=== PATIENT | female | born 1980 | race Caucasian/White ===

== ENCOUNTER 2023-12-15 23:45 | Emergency (ER) | payer OTHER, SELFPAY ==
[2023-12-15 23:49] VITALS: BP 143/76; PULSE 82; RESP 18; TEMP 36.4; O2SAT 98; BMI 46.4
--- NOTE | 2023-12-16 00:26 | ED.ANIMALBIT ---
HPI - Animal Bite General Chief Complaint: Animal Bite Stated Complaint: bit by dog Time Seen by Provider: 12/16/23 00:18 Source: patient Mode of arrival: ambulatory Limitations: no limitations History of Present Illness HPI narrative: Patient is a 43-year-old female who presents to the emergency department for evaluation. She reports earlier this morning while walking her dog, she noted a stray puppy on the walk. She picked up the puppy to check whether it had collar which did not. The puppy then bit her right breast before jumping down and running off. She was unable to locate the puppy again nor its owners. Vaccination status is unknown. No active bleeding. Reports tetanus vaccination updated a few months ago. Requesting rabies vaccination Related Data Previous Rx's ?Medication ?Instructions ?Recorded amoxicillin 875 mg-potassium 1 tab PO BID #13 tabs 12/16/23 clavulanate 125 mg tablet Allergies Allergy/AdvReac Type Severity Reaction Status Date / Time No Known Allergies Allergy Verified 12/15/23 23:51 Review of Systems Review of Systems: Yes all other systems are reviewed and are negative PENDING SALE TO [facility] Past Medical History Attestation statement: The following information was validated with the patient. Source: old records reviewed Social History Social History Advance Directives: No Advance Directives Information Provided: Yes Do you have a plan to hurt others: No Plan Physical Exam ED Vital Signs: Vital Signs - 24 hr 12/15/23 23:49 12/16/23 00:48 Temperature 97.6 F 97.8 F Pulse Rate 82 63 Respiratory Rate 18 18 Blood Pressure 143/76 H 144/66 H Pulse Oximetry 98 98 Oxygen Delivery Method Room Air Room Air BMI result Body Mass Index 46.4 Appearance: Alert.?Oriented to person, place and time. No acute distress.?Normal affect. Neck: Normal inspection.? Neck supple.?? CVS: Heart sounds normal. Normal heart rate and rhythm.? Pulses normal.?? Respiratory: No respiratory distress.? Lung sounds clear to auscultation bilaterally?? Skin: Skin warm and dry.? Normal skin color.? Two puncture gruber to the right breast superior to the areola without active bleeding? Neuro: Moves all extremities spontaneously. Sensation intact bilaterally. Ambulates with normal steady gait. Medications Administered Discontinued Medications Generic Name Dose Route Start Last Admin Trade Name Freq PRN Reason Stop Dose Admin Amoxicillin/Clavulanate Potassium 875 mg 12/16/23 00:53 12/16/23 01:30 Amoxicillin/Potassium Clav 875 Mg Tablet PO 12/16/23 00:54 875 mg ONCE ONE Administration Rabies Vaccine Human Diploid Cell 1 ml 12/16/23 00:53 12/16/23 01:28 Rabies Vaccine, Human Diploid (Imovax) 1 Ml Vial IM 12/16/23 00:54 1 ml .ONCE ONE Administration Medical Decision Making Medical Decision Making MDM Narrative: Patient is a 43 old female who presents emergency department for evaluation will do after a dog bite to the right breast as per HPI. No active bleeding. Discussed course of treatment inpatient, including course of Augmentin, rabies IG and rabies vaccination series she is amenable to treatment. Discussed worrisome signs and symptoms that would warrant re-evaluation in the emergency department. Provided with instructions for follow-up for remainder vaccination series. Differential Diagnosis Differential Diagnoses: The differential diagnosis associated with the presentation includes (See narrative above) Prescription Management I considered prescription management with: Antibiotic Discharge Plan Discharge Clinical Impression: Dog bite Patient Disposition: Home, Self-Care Instructions: Animal Bite (ED), Rabies (ED) Additional Instructions: Rabies follow up with the [facility]: Upon discharge from the ED today, you will be contacted by the Infusion Center to schedule your follow up Rabies vaccines. You will need a total of 3 more injections. If for some reason you do not receive a call, please call the Infusion Center directly at [phone]. Follow up with your primary care provider after completion of the vaccine to have a titer drawn to ensure the vaccines effectiveness. Prescriptions: New amoxicillin-pot clavulanate 875-125 mg tablet 1 tab PO BID Qty: 13 0RF Print Language: Portuguese
[2023-12-16 00:48] VITALS: BP 144/66; PULSE 63; RESP 18; TEMP 36.6; O2SAT 98
[2023-12-16] MEDS: Rabies Vaccine, Human Diploid (Imovax) 1 ML VIAL IM (01:28)
[2023-12-16] MEDS: Amoxicillin/Potassium Clav 875 MG TABLET PO (01:30)
[2023-12-16] MEDS: Rabies Immune Globulin/PF 900 UNIT/3 ML VIAL 2685.26 UNIT IM (01:46)
--- NOTE | 2023-12-16 02:00 | PC.NURSE ---
ED provider was able to administer 5.9509 mL of Rabies IG around right breast dog bite site, this RN administered 3 mL of rabies IG IM into left deltoid.
--- NOTE | 2023-12-16 02:04 | PC.NURSE ---
Domestic Animal Bite reporting form completed and faxed to [facility] Nurse Manager at [phone].
[2023-12-16 02:09] VITALS: BP 139/88; PULSE 88; RESP 16; TEMP 36.8; O2SAT 98
== END 2023-12-16 02:10 | disposition home or self-care (01) ==
PROVIDERS: Emergency Provider Internal Medicine
DX: S21.051A Open bite of right breast, initial encounter (principal); W54.0XXA Bitten by dog, initial encounter; Y93.01 Activity, walking, marching and hiking; Y92.480 Sidewalk as the place of occurrence of the external cause; Y99.9 Unspecified external cause status; Z20.3 Contact with and (suspected) exposure to rabies; Z23 Encounter for immunization
CPT/HCPCS: 90375; 90471; 90675; 96372; 99284